=== PATIENT | female | born 1985 | race Caucasian/White ===

== ENCOUNTER 2018-10-12 03:24 | Emergency (ER) | payer BC, OTHER ==
[2018-10-12] MEDS ORDERED: ONDANSETRON 4 MG/2 ML VIAL IVPB ONE (03:55)
[2018-10-12] MEDS ORDERED: SODIUM CHLORIDE 0.9% 500 ML INFUS.BAG IV ONE (03:55)
--- NOTE | 2018-10-12 03:55 | PDOC ---
Attending Attestation - Resident Resident Name: Amy Warren - ED Attending Attestation I have performed the following: I have examined & evaluated the patient, The case was reviewed & discussed with the resident, I agree w/resident's findings & plan - HPI HPI: 10/12/18 03:54 Pt comes with nausea; likely motion sickness, as she was on a cruise earlier today. Pt admits that she has anxiety and that she often fels nausea as a result. - Physicial Exam PE: 10/12/18 04:44 Agree with resident exam. Pt has no abdominal pain and no flank pain. She has no ext swelling and no fever and no headaches. She has no other positive findings. - Medical Decision Making 10/12/18 04:46 UA shows a UTI. She is not . If her labs are normal, she can go home with keflex TID x 7 days. 10/12/18 04:55 WBC normal. Chem pending
--- NOTE | 2018-10-12 03:57 | PDOC ---
History of Present Illness - General Stated Complaint: NAUSEA Time Seen by Provider: 10/12/18 03:38 - History of Present Illness Initial Comments: Chelsea Howell is a 32yo woman with no medical history, currently visiting from out of town, who presents reporting nausea after a boat trip this evening. She states that she has a history of frequent motion sickness, and she took dramamine tonight without any improvement. She reports that she felt well prior to this evening, and she has no associated symptoms including fever, chills, unusual foods, sick contacts, vomiting, or change in bowel habits. She does not believe that she is as she takes OCP's. She denies alcohol or drug use tonight. Past History - Past Medical History Allergies/Adverse Reactions: Allergies Allergy/AdvReac Type Severity Reaction Status Date / Time terbutaline sulfate Allergy Severe SYNCOPE Verified 05/26/13 06:07 [From [facility]] Home Medications: Ambulatory Orders NK [No Known Home Medication] 10/12/18 Anemia: No Asthma: No Cancer: No Cardiac Disorders: No - Surgical History Abdominal Surgery: No Appendectomy: No Cardiac Surgery: No Cholecystectomy: No - Reproductive History (#): 4 Para: 1 Therapeutic (s) & number: Yes (1) Spontaneous : 1 - Immunization History Immunization Up to Date: Yes - Suicide/Smoking/Psychosocial Hx Smoking Status: Yes Smoking History: Never smoked Number of Cigarettes Smoked Daily: 0 Cigars Per Day: 0 Hx Alcohol Use: No Substance Use Type: None Review of Systems - Review of Systems Comments:: General: No fevers, no chills, no weight or appetite change, no malaise HEENT: No changes in vision, no changes in hearing, no congestion, no sore throat CV: No chest pain, no palpitations, no LE edema Pulm: No SOB, no cough, no wheezing GI: +Nausea, no vomiting, no change in bowel habits, no melena : No frequency, no urgency, no dysuria Musc: No back pain, no joint swelling, no recent injury Skin: No rash, no lesions, no erythema Endo: No excessive thirst, no heat/cold intolerance Heme: No unusual bruising or bleeding, no swollen glands Neuro: No syncope, no numbness/tingling, no focal weakness Vasc: No claudication Psych: No recent change in mood, no SI or HI *Physical Exam - Physical Exam Comments: General: Comfortable, no acute distress HEENT: PERRL, EOMI, MMM, voice normal, normal neck ROM Cards: RRR, no murmur appreciated Pulm: Comfortable on room air, clear to auscultation bilaterally Abd: Soft, nontender, nondistended : No CVA tenderness Ext: Atraumatic. No LE edema. ROM intact Vasc: Extremities WWP Skin: Normal color, no rashes or lesions Neuro: A&Ox3, CN grossly intact, normal speech, motor/sensory grossly intact and symmetric Psych: Mood appropriate to situation ED Treatment Course - LABORATORY CBC & Chemistry Diagram: 10/12/18 04:20 10/12/18 04:20 Medical Decision Making - Medical Decision Making 10/12/18 03:48 Chelsea Howell is a 32yo woman with no medical history, currently visiting from out of town, who presents reporting nausea after a boat trip this evening. - Nausea may be due to motion sickness, unknown , gastritis, unusual eating habits while on vacation, viral illness - Benign exam. No abdominal TTP, vitals normal - CBC, CMP, pregancy test - IVF and zofran for symptoms 10/12/18 04:43 - UA positive for UTI. Ceftriaxone started. Will give keflex prescription for home - Feeling improved after zofran - Will d/c home if no concerns on labs Discussed with Dr Fofana. Amy Warren PGY1 *DC/Admit/Observation/Transfer Diagnosis at time of Disposition: Nausea UTI (urinary tract infection) Qualifiers: Urinary tract infection type: acute cystitis Hematuria presence: without hematuria Qualified Code(s): N30.00 - Acute cystitis without hematuria - Discharge Dispostion Disposition: HOME Condition at time of disposition: Stable Decision to Admit order: No - Referrals Referrals: ON STAFF,NOT [Primary Care Provider] - - Patient Instructions Additional Instructions: Discharge Instructions: You were seen in the emergency department for nausea. Your symptoms improved with medication and IV fluids. You were also found to have a urinary tract infection. Home Care and Follow Up: - Make sure you are drinking plenty of fluids at home. - You have been prescribed an antibiotic for your urinary tract infection. Please take this as prescribed until the medication is finished. Do not stop taking your antibiotic early even if you feel better. - Make an appointment to follow up with your regular doctor as soon as you return home. - Seek immediate care if you have any medical emergency. - Post Discharge Activity Forms/Work/School Notes: Back to Work
[2018-10-12 03:58] VITALS: BP 132/96; PULSE 98; TEMP 98.3; BMI 27.4
[2018-10-12] MEDS ORDERED: ONDANSETRON 4 MG/2 ML VIAL ONE (04:00)
[2018-10-12 04:20] LABS: EPI CELLS 10.1 /HPF (0-5/HPF); HYALINE CASTS 3 /lpf (0-8); PH,URINE 5.5 (5.0-8.0); URINE APPEARANCE CLEAR; URINE BACTERIA 397.4 /hpf (NEGATIVE); URINE BILIRUBIN NEGATIVE (NEGATIVE); URINE COLOR YELLOW; URINE GLUCOSE (UA) NEGATIVE (NEGATIVE); URINE KETONE NEGATIVE (NEGATIVE); URINE LEUK ESTERASE 1+ (NEGATIVE); URINE NITRITE NEGATIVE (NEGATIVE); URINE PROTEIN NEGATIVE (NEGATIVE); URINE RBC 1 /hpf (0-4); URINE UROBILINOGEN 0.2 mg/dL (0.2-1.0); URINE WBC 16 /hpf (0-5)
[2018-10-12 04:21] LABS: HCG,QUALITATIVE URINE Negative
[2018-10-12] MEDS ORDERED: CEFTRIAXONE 1 GM in DEXTROSE 5%-WATER - 100 ML IVPB ONE (04:36)
[2018-10-12 04:46] LABS: BASO % 0.5 % (0-2.0); EOS % 0.2 % (0-4.5); HEMATOCRIT 36.3 % (32.4-45.2); HEMOGLOBIN 12.7 GM/dL (10.7-15.3); LYMPH % 27.6 % (8-40); MCH 29.3 pg (25.7-33.7); MEAN CELL VOLUME 83.6 fl (80-96); MEAN PLT VOLUME 7.7 fl (7.5-11.1); MONO % 3.6 % (3.8-10.2); NEUT % 68.1 % (42.8-82.8); PLATELET COUNT 347 K/MM3 (134-434); RBC 4.34 M/mm3 (3.60-5.2); RDW 12.9 % (11.6-15.6); WHITE BLOOD COUNT 8.1 K/mm3 (4.0-10.0)
[2018-10-12] MEDS ORDERED: CEFTRIAXONE 1 GM/50 ML BAG ONE (04:59)
[2018-10-12 05:06] LABS: ALBUMIN 3.7 g/dl (3.4-5.0); BILIRUBIN,TOTAL 0.4 mg/dL (0.2-1); BLOOD UREA NITROGEN 10.2 mg/dL (7-18); CREATININE 0.9 mg/dL (0.55-1.3); POTASSIUM 4.2 mmol/L (3.5-5.1); TOT PROT 8.4 g/dl (6.4-8.2)
== END 2018-10-12 05:34 | disposition home or self-care (01) ==
LOC: JER 03:24
PROC: 3E03329 Introduction of Other Anti-infective into Peripheral Vein, Percutaneous Approach (ICD-10-PCS; principal; 2018-10-12)
PROC: 3E033GC Introduction of Other Therapeutic Substance into Peripheral Vein, Percutaneous Approach (ICD-10-PCS; 2018-10-12)
DX: N30.00 Acute cystitis without hematuria (principal)
CPT/HCPCS: 36415; 80053; 81003; 84703; 85025; 99282-25

== ENCOUNTER 2020-03-02 20:16 | Inpatient (IN) | payer OTHER ==
[2020-03-02] MEDS ORDERED: SODIUM CHLORIDE 1,000 ML IV STA (20:25)
[2020-03-02 20:33] VITALS: BMI 27.4
[2020-03-02] MEDS ORDERED: METOCLOPRAMIDE HCL INJECTION 10 MG/2 ML VIAL IVPUSH ONE (20:50)
[2020-03-02] MEDS ORDERED: METOCLOPRAMIDE HCL INJECTION 10 MG/2 ML VIAL ONE (21:15)
[2020-03-02 21:38] LABS: BASO % 0.6 % (0-2.0); EOS % 0.1 % (0-4.5); HEMATOCRIT 33.6 % (32.4-45.2); HEMOGLOBIN 10.9 GM/dL (10.7-15.3); LYMPH % 23.7 % (8-40); MCH 23.7 pg (25.7-33.7); MCHC 32.5 g/dl (32.0-36.0); MEAN CELL VOLUME 72.8 fl (80-96); MEAN PLT VOLUME 7.7 fl (7.5-11.1); MONO % 3.9 % (3.8-10.2); NEUT % 71.7 % (42.8-82.8); PLATELET COUNT 341 K/MM3 (134-434); RBC 4.62 M/mm3 (3.60-5.2); RDW 19.6 % (11.6-15.6); WHITE BLOOD COUNT 8.3 K/mm3 (4.0-10.0)
[2020-03-02 22:07] LABS: POTASSIUM 3.9 mmol/L (3.5-5.1)
[2020-03-02 22:09] LABS: ALBUMIN 3.7 g/dl (3.4-5.0); BLOOD UREA NITROGEN 7.4 mg/dL (7-18); CALCIUM 9.2 mg/dL (8.5-10.1)
[2020-03-02 22:12] LABS: CREATININE 0.8 mg/dL (0.55-1.3)
[2020-03-02 22:14] LABS: BILIRUBIN,TOTAL 0.6 mg/dL (0.2-1); TOT PROT 7.5 g/dl (6.4-8.2)
[2020-03-02] MEDS ORDERED: LORazepam 2 MG/ML SDV VIAL ONE (22:20)
[2020-03-02 22:44] LABS: PH,URINE 5.5 (5.0-8.0); URINE APPEARANCE CLEAR; URINE BILIRUBIN NEGATIVE (NEGATIVE); URINE COLOR YELLOW; URINE GLUCOSE (UA) NEGATIVE (NEGATIVE); URINE KETONE 3+ (NEGATIVE); URINE LEUK ESTERASE NEGATIVE (NEGATIVE); URINE NITRITE NEGATIVE (NEGATIVE); URINE PROTEIN NEGATIVE (NEGATIVE); URINE UROBILINOGEN 0.2 mg/dL (0.2-1.0)
[2020-03-03] MEDS ORDERED: SODIUM CHLORIDE 1,000 ML IV STA (00:58)
[2020-03-03] MEDS ORDERED: FAMOTIDINE 20 MG/50 ML IVPB 20 MG/50 ML MG IVPB ONE ×2 (00:59→01:00)
[2020-03-03] MEDS ORDERED: ONDANSETRON 4 MG/2 ML VIAL IVPUSH ONE (01:52)
[2020-03-03] MEDS: SODIUM CHLORIDE 1,000 ML IV SCH ×2 (03:29→03:59)
[2020-03-03] MEDS ORDERED: MAG HYDROX/AL HYDROX/SIMETH 30 ML UNIT-DOSE CUP PO PRN (03:51)
[2020-03-03] MEDS ORDERED: PROCHLORPERAZINE MALEATE 5 MG TABLET PO ONE (03:52)
[2020-03-03] MEDS ORDERED: PROCHLORPERAZINE INJECTION 10 MG/2 ML VIAL IVPB ONE (03:54)
[2020-03-03] MEDS ORDERED: LACTATED RINGERS SOLUTION 1,000 ML IV SCH (04:00)
[2020-03-03] MEDS ORDERED: PROCHLORPERAZINE INJECTION 10 MG/2 ML VIAL ONE (04:50)
[2020-03-03 08:30] LABS: HEMATOCRIT 32.5 % (32.4-45.2); HEMOGLOBIN 10.7 GM/dL (10.7-15.3); MCH 24.1 pg (25.7-33.7); MEAN CELL VOLUME 72.9 fl (80-96); MEAN PLT VOLUME 7.4 fl (7.5-11.1); PLATELET COUNT 321 K/MM3 (134-434); RBC 4.46 M/mm3 (3.60-5.2); WHITE BLOOD COUNT 8.2 K/mm3 (4.0-10.0)
[2020-03-03 08:49] LABS: POTASSIUM 3.6 mmol/L (3.5-5.1)
[2020-03-03 09:00] LABS: CALCIUM 8.7 mg/dL (8.5-10.1)
[2020-03-03 09:01] LABS: BLOOD UREA NITROGEN 6.5 mg/dL (7-18)
[2020-03-03 09:04] LABS: CREATININE 0.7 mg/dL (0.55-1.3)
[2020-03-03] MEDS ORDERED: busPIRone HCL 10 MG TABLET (FP) PO SCH (10:00)
[2020-03-03] MEDS ORDERED: busPIRone HCL 5 MG TABLET ONE (10:08)
[2020-03-03 13:30] VITALS: BP 120/72; PULSE 81; TEMP 97.8
== END 2020-03-03 13:31 | disposition home or self-care (01) | DRG 392 ==
LOC: JER 20:16 → JERBED 03-03 03:14
PROVIDERS: ADMIT Hospitalist; ATTEND Internal Medicine
DX: A08.4 Viral intestinal infection, unspecified (principal); F32.9 Major depressive disorder, single episode, unspecified; F43.10 Post-traumatic stress disorder, unspecified; F41.9 Anxiety disorder, unspecified; N28.1 Cyst of kidney, acquired
CPT/HCPCS: 36415; 74177-TC; 80048; 80053; 81003; 82728; 83036; 83690; 83735; 84100; 84443; 84703; 85025; 85027; 85651; 86140; 87086; 93005; 93010; 99285-25; C9803; J0131; Q9967; U0003

== ENCOUNTER 2020-12-05 02:11 | Emergency (ER) | payer OTHER ==
[2020-12-05 02:19] VITALS: BMI 23.1
[2020-12-05] MEDS ORDERED: ONDANSETRON *ODT* 4 MG TABLET SL ONE (03:08)
[2020-12-05] MEDS ORDERED: LORazepam 2 MG TABLET PO ONE (03:11)
[2020-12-05] MEDS ORDERED: ONDANSETRON *ODT* 4 MG TABLET ONE (03:25)
[2020-12-05] MEDS ORDERED: LORazepam 1 MG TABLET ONE (03:26)
[2020-12-05 03:52] LABS: HCG,QUALITATIVE URINE Negative
[2020-12-05 03:53] LABS: EPI CELLS 8 /uL (0-25.1); HYALINE CASTS 1 /uL (0-3.1); PH,URINE 5.5 (5.0-8.0); URINE APPEARANCE CLEAR; URINE BACTERIA 233 /uL (0-1359); URINE BILIRUBIN NEGATIVE (NEGATIVE); URINE COLOR YELLOW; URINE GLUCOSE (UA) NEGATIVE (NEGATIVE); URINE KETONE TRACE (NEGATIVE); URINE LEUK ESTERASE NEGATIVE (NEGATIVE); URINE NITRITE NEGATIVE (NEGATIVE); URINE PROTEIN NEGATIVE (NEGATIVE); URINE RBC 187 /uL (0-23.9); URINE UROBILINOGEN 0.2 mg/dL (0.2-1.0); URINE WBC 20 /uL (0-25.8)
[2020-12-05] MEDS ORDERED: SODIUM CHLORIDE 1,000 ML IV STA (05:55)
[2020-12-05 06:41] LABS: HEMATOCRIT 37.5 % (32.4-45.2); HEMOGLOBIN 12.9 GM/dL (10.7-15.3); MCH 28.4 pg (25.7-33.7); MCHC 34.5 g/dl (32.0-36.0); MEAN CELL VOLUME 82.5 fl (80-96); PLATELET COUNT 292 10^3/uL (134-434); RBC 4.54 M/mm3 (3.60-5.2); RDW 13.5 % (11.6-15.6); WHITE BLOOD COUNT 6.4 K/mm3 (4.0-10.0)
[2020-12-05 07:03] LABS: CALCIUM 8.8 mg/dL (8.5-10.1)
[2020-12-05 07:04] LABS: ALBUMIN 3.9 g/dl (3.4-5.0); BLOOD UREA NITROGEN 6.6 mg/dL (7-18)
[2020-12-05 07:07] LABS: CREATININE 0.7 mg/dL (0.55-1.3)
[2020-12-05 07:09] LABS: BILIRUBIN,TOTAL 0.4 mg/dL (0.2-1); TOT PROT 7.7 g/dl (6.4-8.2)
[2020-12-05 07:25] VITALS: BP 130/79; PULSE 93; TEMP 98.3
== END 2020-12-05 07:48 | disposition home or self-care (01) ==
LOC: JER 02:11
PROC: 3E0337Z Introduction of Electrolytic and Water Balance Substance into Peripheral Vein, Percutaneous Approach (ICD-10-PCS; principal; 2020-12-05)
DX: R11.2 Nausea with vomiting, unspecified (principal); R10.84 Generalized abdominal pain; F41.9 Anxiety disorder, unspecified
CPT/HCPCS: 36415; 80053; 81003; 84703; 85027; 87086; 99284-25; Q0162

== ENCOUNTER 2021-05-20 16:31 | Emergency (ER) | payer OTHER ==
[2021-05-20 16:44] VITALS: BP 125/53; PULSE 107; TEMP 97.8; BMI 20.5
[2021-05-20] MEDS ORDERED: IBUPROFEN 600 MG TABLET (FP) PO ONE ×2 (17:28→17:30)
[2021-05-20] MEDS ORDERED: DIPHTH,PERTUSS(ACELL),TET 0.5 ML DISP.SYRIN IM ONE ×2 (17:28→17:31)
[2021-05-20] MEDS ORDERED: BACITRACIN 15 GM TUBE TOPICAL OINTMENT ONE (17:30)
== END 2021-05-20 17:44 | disposition home or self-care (01) ==
LOC: JERFT 16:31
PROC: 3E0234Z Introduction of Serum, Toxoid and Vaccine into Muscle, Percutaneous Approach (ICD-10-PCS; principal; 2021-05-20)
DX: M79.641 Pain in right hand (principal)
CPT/HCPCS: 73110-TC-RT-FY; 73130-TC-RT-FY; 90471; 90715; 99284-25

== ENCOUNTER 2021-07-20 07:01 | Emergency (ER) | payer OTHER ==
[2021-07-20 07:34] VITALS: BP 122/82; PULSE 85; TEMP 98.5; BMI 19.7
[2021-07-20 08:33] LABS: BASO % 0.8 % (0-2.0); EOS % 2.1 % (0-4.5); HEMATOCRIT 34.1 % (32.4-45.2); HEMOGLOBIN 11.6 GM/dL (10.7-15.3); LYMPH % 26.5 % (8-40); MCH 28.5 pg (25.7-33.7); MCHC 34.1 g/dl (32.0-36.0); MEAN CELL VOLUME 83.8 fl (80-96); MONO % 5.6 % (3.8-10.2); PLATELET COUNT 266 10^3/uL (134-434); RBC 4.07 M/mm3 (3.60-5.2); WHITE BLOOD COUNT 5.3 K/mm3 (4.0-10.0)
[2021-07-20] MEDS ORDERED: ACETAMINOPHEN 1000 MG/100 ML BAG IVPB ONE (08:51)
[2021-07-20] MEDS ORDERED: ACETAMINOPHEN INJECTION 100 ML IVPB ONE (08:57)
[2021-07-20 09:05] LABS: CALCIUM 8.9 mg/dL (8.5-10.1)
[2021-07-20 09:06] LABS: ALBUMIN 4.1 g/dl (3.4-5.0); BLOOD UREA NITROGEN 9.5 mg/dL (7-18)
[2021-07-20 09:08] LABS: CREATININE 0.7 mg/dL (0.55-1.3)
[2021-07-20 09:10] LABS: TOT PROT 7.5 g/dl (6.4-8.2)
[2021-07-20 09:11] LABS: BILIRUBIN,TOTAL 0.5 mg/dL (0.2-1)
== END 2021-07-20 11:45 | disposition home or self-care (01) ==
LOC: JER 07:01
PROC: 3E033GC Introduction of Other Therapeutic Substance into Peripheral Vein, Percutaneous Approach (ICD-10-PCS; principal; 2021-07-20)
DX: L76.34 Postprocedural seroma of skin and subcutaneous tissue following other procedure (principal); K56.7 Ileus, unspecified; N28.1 Cyst of kidney, acquired
CPT/HCPCS: 36415; 74177-TC; 80053; 83690; 84703; 85025; 99285-25; Q9967